=== PATIENT | female | born 2000 | race Caucasian/White ===

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

== ENCOUNTER 2018-03-19 18:37 | Emergency (ER) | payer MEDICAID ==
[2018-03-19 18:37] VITALS: BMI 24.4
[2018-03-19] MEDS ORDERED: Sodium Chloride 0.9% 1,000 ML IV ONE (20:30)
--- NOTE | 2018-03-19 20:31 | C.PDOC ---
History Of Present Illness 17 year old female w/o significant PMHx presents to the ED for evaluation of diffused abdominal pain described as cramping that radiates to her lower back gradually developed for past 2 days (+) nausea. Otherwise, pt denies fever, c hills, throat pain, chest pain, shortness of breath, vomiting, diarrhea, dysuria, hematuria or any other associated symptoms. Ambulate to Ed for evaluation, not in any apparent distress. Time Seen by Provider: 03/19/18 19:42 Chief Complaint (Nursing): Abdominal Pain History Per: Patient History/Exam Limitations: no limitations Onset/Duration Of Symptoms: Hrs Current Symptoms Are (Timing): Still Present Location Of Pain/Discomfort: Diffuse Radiation Of Pain To:: Back Quality Of Discomfort: Cramping Associated Symptoms: Nausea, Back Pain. denies: Fever, Chills, Vomiting, Diarrhea, Chest Pain, Constipation, Urinary Symptoms Last Bowel Movement: Today Past Medical History Reviewed: Historical Data, Nursing Documentation, Vital Signs Vital Signs: Last Vital Signs Temp 98.9 F 03/19/18 18:53 Pulse 74 03/19/18 18:53 Resp 18 03/19/18 18:53 BP 121/75 03/19/18 18:53 Pulse Ox 100 03/19/18 18:53 - Medical History PMH: No Chronic Diseases Surgical History: No Surg Hx Family History: States: No Known Family Hx - Social History Hx Tobacco Use: No Hx Alcohol Use: No Hx Substance Use: No - Immunization History Hx Tetanus Toxoid Vaccination: No Hx Influenza Vaccination: No Hx Pneumococcal Vaccination: No Review Of Systems Except As Marked, All Systems Reviewed And Found Negative. Constitutional: Negative for: Fever, Chills ENT: Negative for: Throat Pain Cardiovascular: Negative for: Chest Pain Respiratory: Negative for: Shortness of Breath Gastrointestinal: Positive for: Nausea, Abdominal Pain. Negative for: Vomiting, Diarrhea Genitourinary: Negative for: Dysuria, Frequency, Hematuria, Vaginal Discharge, Vaginal Bleeding Musculoskeletal: Positive for: Back Pain Neurological: Negative for: Headache Physical Exam - Physical Exam Appears: Well, Non-toxic, No Acute Distress Skin: Normal Color, Warm, Dry Head: Normacephalic Eye(s): bilateral: PERRL Nose: No Discharge Oral Mucosa: Moist Throat: No Erythema Neck: Trachea Midline, Supple Cardiovascular: Rhythm Regular Respiratory: No Decreased Breath Sounds, No Accessory Muscle Use, No Stridor, No Wheezing Gastrointestinal/Abdominal: Soft, Tenderness (mod RLQ tenderness), No Distention, No Guarding, No Rebound Back: No CVA Tenderness Extremity: Normal ROM, No Deformity, No Swelling Neurological/Psych: Oriented x3, Normal Speech Additional Physical Exam Comments: Appears: Well Appearing, Non-toxic, No Acute Distress Skin: Normal Color, Warm, Dry, No Rash Head: Normacephalic Eye(s): bilateral: PERRL Ear(s): Bilateral: Normal Nose: No Flaring, No Discharge Oral Mucosa: Moist, No Drooling Tongue: Normal Appearing Lips: Normal Appearing Throat: No Erythema, No Drooling Neck: Trachea Midline, Supple Cardiovascular: Rhythm Regular Respiratory: No Decreased Breath Sounds, No Accessory Muscle Use, No Stridor, No Wheezing Gastrointestinal/Abdominal: Soft, Tenderness (RLQ), No Distention, No Guarding, No Rebound Back: No CVA Tenderness Extremity: Normal ROM, No Deformity, No Swelling Neurological/Psych: Oriented x3, Normal Speech ED Course And Treatment - Laboratory Results Result Diagrams: 03/19/18 20:45 03/19/18 20:45 Lab Interpretation: No Acute Changes Urine POC: Negative O2 Sat by Pulse Oximetry: 100 (RA) Pulse Ox Interpretation: Normal - CT Scan/US CT A/P w/IV contrast Other Rad Studies (CT/US): Radiology Report Reviewed CT/US Interpretation: EXAM: CT Abdomen and pelvis with IV contrast. CLINICAL HISTORY: RLQ PAIN. TECHNIQUE: Axial computed tomography images of the abdomen and pelvis with intravenous contrast. 0.00 mGy-cm. CONTRAST: With; VISI 100 MLS. COMPARISON: None provided. FINDINGS: LUNG BASES: The heart is not enlarged. The pulmonary bases are well-aerated. LIVER: Unremarkable. GALLBLADDER AND BILE DUCTS: The gallbladder appears within normal limits. No radioopaque gallstones are seen. No biliary ductal dilatation is evident. PANCREAS: Unremarkable. SPLEEN: Unremarkable. ADRENAL GLANDS: Unremarkable. KIDNEYS, URETERS, AND BLADDER: The kidneys appear within normal limits. There is no hydronephrosis or hydroureter. No urinary calculi are seen. STOMACH AND BOWEL: Unremarkable appearance of the stomach and bowel. No evidence of bowel obstruction. No evidence suggesting enteritis or colitis. APPENDIX: Nonobstructive bowel gas pattern. Appendix not visualized. No right lower quadrant inflammatory changes. PERITONEUM: No free fluid. No free air. LYMPH NODES: No lymphadenopathy is evident. VASCULATURE: No evidence of abdominal aortic aneurysm. BONES: No aggressive appearing osseous lesion. No acute osseous pathology evident. MISCELLANEOUS: Questionable right ovarian cyst with central calcification, see series 3 image 130. Bilateral pelvic varices. Questionable free pelvic fluid. IMPRESSION: 1. Questionable right ovarian cyst with central calcification, see series 3 image 130. recommend pelvic ultrasound study. 2. Bilateral pelvic varices. 3. Questionable free pelvic fluid. 4. The heart is not enlarged. The pulmonary bases are well-aerated. 5. Nonobstructive bowel gas pattern. Appendix not visualized. No right lower quadrant inflammatory changes. . Electronically signed on Mar 19, 2018 10:30:00 PM EST by: Gerber Licona M.D., Certified by [facility] Progress Note: Plan: CT abd/pel. Bloodwork. Pepcid. Toradol. Zofran. IV fluids. Labs. Pt was OBS in ED for 3.5 hours and reports mod improvement in pain. On re-eval, pt is afebrile, hemodynamicaly stable. NOn-toxic, tolerate Po well in ED. ENT: no acute findings. neck: SUpple, (-) JVD, (-) meningeal sign. Lungs: CTA B/L, BS equal B/L. CVS: (+)S1S2, reg, (-) murmur. Abd: benign, (-) guar ding, (-) rebound. Back: (-) CVA tenderness. neuorlogicaly intact. Blood work review and appears normal, no leukocytosis or left shift, no evidenc eof dehydration. UA- normal. CT A/P review: Questionable right ovarian cyst, appendix is not visualized. Pt has clinical findings c/w right ovarian cyst. pt advised. ref. to f/u with PMD, [facility] in1 -2 days for re-eavl,. Return to Ed if any worsening or new changes. Disposition Counseled Patient/Family Regarding: Studies Performed, Diagnosis, Need For Followup, Rx Given - Disposition Referrals: Simran Leyva MD [Medical Doctor] - Magdi Brown MD [Staff Provider] - [facility] Disposition: HOME/ ROUTINE Disposition Time: 22:33 Condition: STABLE Additional Instructions: Encourage fluids Take pain medication as need Follow up with [facility], GI in 2-3 days for re-evaluation. return to Ed if any worsening or new changes. Prescriptions: Ibuprofen [Motrin Tab] 600 mg PO BID #20 tab Instructions: Ovarian Cysts Forms: [employer] (Mozambican) - Clinical Impression Clinical Impression: Nausea, Abdominal pain, Ovarian cyst - PA / FOOD SANITARIAN / Resident Statement MD/DO has reviewed & agrees with the documentation as recorded. - Scribe Statement The provider has reviewed the documentation as recorded by the Scribe Mary Jo Ellsworth All medical record entries made by the Yeimyibe were at my direction and personally dictated by me. I have reviewed the chart and agree that the record accurately reflects my personal performance of the history, physical exam, medical decision making, and the department course for this patient. I have also personally directed, reviewed, and agree with the discharge instructions and disposition.
[2018-03-19 20:45] LABS: HCG,QUALITATIVE URINE NEGATIVE (NEGATIVE); SQUAMOUS EPITHIAL 2 /hpf (0-5); URINE BILIRUBIN NEGATIVE (NEGATIVE); URINE BLOOD NEGATIVE (NEGATIVE); URINE CLARITY Clear (Clear); URINE COLOR Yellow (YELLOW); URINE GLUCOSE (UA) NORMAL (Normal); URINE LEUKOCYTE ESTERASE NEG Leu/uL (Negative); URINE PROTEIN NEGATIVE (NEGATIVE); URINE UROBILINOGEN NORMAL mg/dL (0.2-1.0)
[2018-03-19] MEDS ORDERED: Sodium Chloride 0.9% 1,000 ML ONE (20:47)
[2018-03-19 20:49] LABS: BASO # 0.1 K/uL (0.0-0.2); BASO % 0.9 % (0.0-2.0); EOS # 0.3 K/uL (0.0-0.7); EOS % 5.8 % (0.0-4.0); HEMOGLOBIN 12.4 g/dL (11.0-16.0); LYMPH # 2.2 K/uL (1.0-4.3); LYMPH % 39.2 % (20.0-40.0); MEAN CELL VOLUME 88.6 fL (81.0-99.0); MEAN CORPUSCULAR HEMOGLOBIN 29.4 pg (27.0-31.0); MEAN CORPUSCULAR HGB CONC 33.2 g/dL (33.0-37.0); MEAN PLATELET VOLUME 7.9 fL (7.2-11.7); MONO # 0.6 K/uL (0.0-0.8); MONO % 9.8 % (0.0-10.0); NEUT # 2.5 K/uL (1.8-7.0); NEUT % 44.3 % (50.0-75.0); NRBC % 0.1 % (0.0-2.0); RBC 4.22 Mil/uL (3.80-5.20); RED CELL DISTRIBUTION WIDTH 16.8 % (11.5-14.5); WHITE BLOOD COUNT 5.6 K/uL (4.8-10.8)
[2018-03-19 21:05] LABS: ALB/GLOB RATIO 1.4 (1.0-2.1); ALBUMIN 4.8 g/dL (3.5-5.0); ALT/SGPT 19 U/L (9-52); AST/SGOT 30 U/L (14-36); BLOOD UREA NITROGEN 18 mg/dL (7-17); CALCIUM 9.4 mg/dl (8.6-10.4); GFR NON-AFRICAN AMERICAN > 60
[2018-03-19] MEDS ORDERED: Iodixanol 320 MG/ML 100 ML BOTTLE IV ONE (21:41)
[2018-03-19 22:22] VITALS: BP 111/63; PULSE 73; RESP 20; TEMP 99.1
[2018-03-19 22:35] VITALS: O2SAT 100
--- NOTE | 2018-03-20 10:15 | CT ---
Date of service: 03/19/2018 PROCEDURE: CT Abdomen and Pelvis with contrast HISTORY: RLQ abd pain COMPARISON: Comparison is made with 01/16/2015 TECHNIQUE: Contrast dose: 100 mL of Visipaque 320 intravenously. Axial and reformatted coronal and sagittal CT images of the abdomen and pelvis were obtained after IV contrast administration. Radiation dose: Total exam DLP = 616.43 mGy-cm. This CT exam was performed using one or more of the following dose reduction techniques: Automated exposure control, adjustment of the mA and/or kV according to patient size, and/or use of iterative reconstruction technique. FINDINGS: LOWER THORAX: Unremarkable. LIVER: Unremarkable. No gross lesion or ductal dilatation. GALLBLADDER AND BILE DUCTS: Unremarkable. PANCREAS: Unremarkable. No gross lesion or ductal dilatation. SPLEEN: Unremarkable. ADRENALS: Unremarkable. No mass. KIDNEYS AND URETERS: Unremarkable. No hydronephrosis. No solid mass. VASCULATURE: Unremarkable. No aortic aneurysm. No aortic atherosclerotic calcification or mural plaque present. BOWEL: Unremarkable. No obstruction. No gross mural thickening. APPENDIX: There is no evidence of acute appendicitis. PERITONEUM: Unremarkable. No free fluid. No free air. LYMPH NODES: Unremarkable. No enlarged lymph nodes. BLADDER: Unremarkable. REPRODUCTIVE: There is heterogeneous structure at the right pelvis measures 3.2 x 2.6 centimeter contains small calcification and contains foci of low attenuation likely represent fatty tissue. Findings suspicious for right adnexal dermoid cyst/teratoma. If clinically warranted further assessment by ultrasound may be obtained. Prominent vessels noted around the uterus suspicious for pelvic congestion syndrome. BONES: No acute fracture. OTHER FINDINGS: None. IMPRESSION: Dense of acute appendicitis. Mild constipation. Suspicious for right adnexal dermoid cyst/teratoma. If clinically warranted further assessment by ultrasound of the pelvis may be obtained. Preliminary report was submitted by [facility] Radiology contains concordant findings.
== END 2018-03-19 22:51 | disposition home or self-care (01) ==
LOC: C.ER 18:37
DX: N83.209 Unspecified ovarian cyst, unspecified side (principal); R11.0 Nausea; R10.9 Unspecified abdominal pain
CPT/HCPCS: 74177; 80053; 81001; 84703; 85025; 96361; 96372; 96374; 96375; 99285; J1885; J2405; J7030; Q9967